=== PATIENT | female | born 1940 | race Caucasian/White ===

== ENCOUNTER 2016-08-07 11:50 | Inpatient (IN) | payer OTHER ==
--- NOTE | ~2016-08-07 | A ---
[facility] Nutrition Therapy DATE: 08/08/16 Patient: ANDRE DAVIDSON Physician: ERMA Address: [address] [place] [address] MAL[place] Room/Bed: [address] [place] [address], Zip: [place] [address] Admit Date: 08/07/16 Date of : 38 Height: 5 6 Weight: 113 51.25 NUTRITIONAL ASSESSMENT: REASON: LOW BMI PT IS 76 Y.O. FEMALE ADMITTED FOR INFLUENZA PMH: HTN, COPD, ANXIETY DISORDER, SMOKER, EMPYSEMA, HLD, HYPOTHYROIDISM Anthropometrics: 5'6", WT: 112# (51 KG), BMI: 18.1, 86%IBW Labs: WNL Meds: SOLU-MEDROL, NACL, ZOFRAN I/O & Bowel function: 240/480 Skin Integrity: NO KNOWN SKIN ISSUES Estimated Nutrition Needs: INCREASED NUTRIENT NEEDS 2' PT UNDERWEIGHT, WEIGHT LOSS NOTED, CURRENT CONDITION Assessment: CHART REVIEWED AND EVENTS NOTED. PT SEEN FOR LOW BMI. PT ANXIOUS AT TIME OF VISIT REPORTING DECREASED PO INTAKE 2' DECREASED APPETITE PAST FEW DAYS 2' "NOT FEELING WELL". PT REPORTS UBW IS ~135#, OVER [address] ENCOURAGED ADEQUATE KCAL AND PROTEIN INTAKE, PT AGREED TO MAGIC CUP BID, RD WILL ORDER. PT REPORTED NO DIET QUESTIONS AT THIS TIME. RD TO FOLLOW. SEE RECOMMENDATIONS BELOW. Dx: INADEQUATE PROTEIN-ENERGY INTAKE R/T DECREASED APPETITE, CURRENT CONDITION AEB PT REPORT ABOVE, LOW BMI OF 18.1, 86%IBW. Intervention: 1. REGULAR DIET 2. MAGIC CUP BID Monitoring, Evaluation and Goals: 1. PO INTAKE; PROVIDE AND CONSUME ADEQUATE NUTRITION W/NO C/O N/V/D (PO>50%) 2. WEIGHTS; PROMOTE GRADUAL WEIGHT GAIN; PREVENT FURTHER WEIGHT LOSS MONITOR: -PO INTAKE/APPETITE -SUPPLEMENT INTAKE -WEIGHTS Recommendations: [facility] Nutrition Therapy DATE: 08/08/16 Patient: ANDRE DAVIDSON Physician: ERMA Address: [address] [place] [address] Room/Bed: [address] [place] [address], Zip: [place] [address] Admit Date: 08/07/16 Date of : 38 Height: 5 6 Weight: 113 51.25 1. ORDER LELO MAGIC CUP BID W/MEALS 2. PLEASE WEIGH PT q 3 DAYS FOR MONITORING PURPOSES 3. APPRECIATE FAMILY AND STAFF TO ENCOURAGE ADEQUATE KCAL AND PROTEIN INTAKE RD WILL F/U PER PROTOCOL PT IS MILD/MODERATELY COMPROMISED Respectfully, MINNA LIN MS, RD, LD [facility] cc: client file
--- NOTE | ~2016-08-07 | DS ---
Unit #: [id number] #: [id number] Patient: ANDRE DAVIDSON [id number] [address] [address] [id number] I MR#: [id number] NAME: ANDRE DAVIDSON ROOM: 232 Age: 76 Sex: F Admission Date: 08/07/2016 : 1940 Discharge Date: Attending Physician: Boy Darby M.D. Primary Care Physician: Segundo Leblanc M.D. DISCHARGE SUMMARY DISCHARGE/TRANSFER SUMMARY DATE OF TENTATIVE TRANSFER August 09, 2016 Please note, patient is being transferred to inpatient [facility]. PRINCIPAL DISCHARGE DIAGNOSES 1. Acute influenza A. 2. Acute on chronic respiratory failure. 3. Hypoxemia. 4. Chronic obstructive pulmonary disease. 5. Hypertension. 6. Tobacco use. 7. Generalized anxiety disorder. 8. History of hypothyroidism. PROCEDURES None. CONSULTANTS None. REASON FOR HOSPITALIZATION The patient is a 76-year-old white female with a history of hypertension, COPD, generalized anxiety disorder, and ongoing tobacco use, who presented to the emergency room with three days of cough, shortness of air, myalgias, weakness, and headache, found to have acute influenza A and hypoxemia, and admitted for same. On admission, she had a temperature of 99.5, pulse of 115, blood pressure 134/71, and O2 saturation was 94% on two liters but 85% on room air. HOSPITAL COURSE The patient was admitted. She was started on IV Solu-Medrol, p.o. Tamiflu, p.o. Singulair, and DuoNebs. Home medications were resumed otherwise. She was started on Lovenox for DVT prophylaxis. She had minimal improvement while here. EKG on admission showed sinus tachycardia, right axis deviation, and nonspecific ST-T abnormality inferior leads. No old EKGs for comparison. ABGs on two liters showed a pH of 7.368, PCO2 of 38.5, and PAO2 of 93.9. Lactic acid was 0.8. Chest x-ray showed emphysema but no active disease. Blood cultures no growth to date. When I came in this morning, I told the patient she could probably be home Unit #: [id number] #: [id number] Patient: ANDRE DAVIDSON in the next 24-48 hours. She was upset and stated that she did not want to go home, she wanted to go to [facility] for terminal care. [facility] was consulted, and they have accepted the patient pending bed availability. Apparently, the patient was a Do Not Resuscitate at home, and we were unaware of this. It has been written. She is to be transferred to inpatient hospice when a bed is available. She is on comfort measures only with current medications being morphine 1-2 mg IV q.2 hours p.r.n. for pain or shortness of air, Ativan 0.5-1 mg IV q.4 hours p.r.n. for anxiety, and Robinul 0.2 mg IV q.4 hours p.r.n. for excessive secretions. DISPOSITION She will be transferred to [facility] inpatient when a bed is available for terminal care. Dictated by... Zoran Bahena/david TD: 08/09/2016 18:39 JOB #: [id number] DISCHARGE SUMMARY Page 1 of 1 X Boy Darby MD X DISCHARGE SUMMARY
--- NOTE | ~2016-08-07 | EKG ---
PATIENT: ANDRE DAVIDSON UNIT #: [id number] Ventricular Rate: 117 BPM Atrial Rate: 117 BPM P-R Interval: 126 ms QRS Duration: 82 ms Q-T Interval: 306 ms QTC Calculation(Bezet): 426 ms P Sagola: 87 degrees Calculated R Sagola: 102 degrees Calculated T Sagola: -23 degrees Diagnosis Line: Sinus tachycardia Diagnosis Line: Rightward axis Diagnosis Line: ST and T wave abnormality, consider inferior Diagnosis Line: ischemia Diagnosis Line: Abnormal ECG Diagnosis Line: No previous ECGs available Diagnosis Line: Confirmed by AYLIN PARRA MD ([id number]) on Diagnosis Line: 08/07/2016 2:28:44 PM INTERPRETING MD: FIDEL TRAMMELL
--- NOTE | ~2016-08-07 | HP ---
Unit #: [id number] #: [id number] Patient: ANDRE DAVIDSON [id number] [address] [address] [id number] I MR#: [id number] NAME: ANDRE DAVIDSON ROOM: 16166 Age: 76 Sex: F Admission Date: 08/07/2016 : 1940 Attending Physician: Boy Darby M.D. Primary Care Physician: Segundo Leblanc M.D. HISTORY AND PHYSICAL HISTORY OF PRESENT ILLNESS A 76-year-old white female with a history of hypertension, COPD, generalized anxiety disorder, and ongoing tobacco use, presented to the emergency room with three days of cough, shortness of air, myalgias, weakness, and headache, and found to have acute influenza A and hypoxemia and admitted for treatment for same. Patient has no other complaints on review of systems. PAST MEDICAL HISTORY 1. Chronic obstructive pulmonary disease. 2. Emphysema. 3. Generalized anxiety disorder. 4. History of hypothyroidism. 5. Hyperlipidemia. 6. Tobacco use. PAST SURGICAL HISTORY 1. Hernia repair. 2. Ovarian tumor. 3. Breast tumor. 4. Fallopian tube tumor. ALLERGIES No known drug intolerances. MEDICATIONS PRIOR TO ADMISSION 1. Combivent Respimat 1 puff 4 times daily. 2. Xanax 0.25 mg daily. 3. Norvasc 10 mg daily. 4. Aspirin 81 mg daily. 5. Albuterol and Atrovent unit dose mini-nebs 4 times daily. 6. Daliresp 500 mcg daily. 7. Zestril 40 mg daily. 8. Symbicort 160/4.5 at 2 puffs q.12. SOCIAL HISTORY . Smokes 1.5 packs of cigarettes daily. No alcohol or street drug use. FAMILY HISTORY Noncontributory. PHYSICAL EXAMINATION GENERAL: She is awake, alert, and oriented x3. Dyspneic at rest but in Unit #: [id number] #: [id number] Patient: ANDRE DAVIDSON no acute distress otherwise. VITAL SIGNS: Temperature 99.5, pulse 115, respirations 23, blood pressure 134/71, and O2 saturation 94% on two liters. On room air, it was 85%. HEENT: Unremarkable except for nasal cannula in place. NECK: Supple without JVD, bruits, adenopathy, or thyromegaly. CHEST: Diffusely decreased breath sounds but clear to auscultation. HEART: Regular rate and rhythm without any S3 gallop or murmur appreciated. ABDOMEN: Soft, nondistended, and nontender, with positive bowel sounds and no hepatosplenomegaly. EXTREMITIES: No clubbing, cyanosis, or edema. GENITOURINARY/RECTAL: Deferred. NEUROLOGIC: Grossly intact. DIAGNOSTIC STUDIES LABORATORY: CBC normal. Cardiac enzymes normal. Lactic acid normal x2. CMP normal. Influenza A positive, influenza B negative. On 2 liters, her pH was 7.36, PCO2 was 38.5, and PAO2 was 93.7. IMAGING: Chest x-ray shows severe emphysema and no active disease. CARDIOLOGY: EKG sinus tachycardia and inferior ST-T abnormality. No old EKGs for comparison. IMPRESSION 1. Acute influenza A. 2. Acute on chronic respiratory failure with hypoxemia. 3. Chronic obstructive pulmonary disease. 4. Hypertension. 5. Generalized anxiety disorder. PLAN IV Solu-Medrol, p.o. Tamiflu, Singulair, DuoNebs, and resume home medications. Supplemental oxygen to keep her saturations above 90%. Further evaluation pending results of the above. Dictated by Zoran Bahena/david TD: 08/07/2016 17:51 JOB #: [id number] HISTORY AND PHYSICAL Page 1 of 1 X Boy Darby MD X HISTORY AND PHYSICAL
--- NOTE | ~2016-08-07 | CR72 ---
[facility] A Service of [facility] RADIOLOGY TEXT RESULTS PATIENT: ANDRE DAVIDSON LOCATION: [facility] 232-01 : 38 UNIT #: [id number] AGE: [address]: Boy Darby MD SEX: F ORDER DR: [id number] [facility] [address] [place], [place] [address] [id number] MR#: [id number] Acc #: [id number] NAME: ANDRE DAVIDSON : 1940 SEX: F STUDY DATE/TIME: 08/07/2016 10:57 UNIT: [facility] ROOM: STUDY DESCRIPTION: CR Chest Single View Portable Attending Physician: Segundo Gunderson M.D. Ordering Physician: Segundo Gunderson M.D. Primary Care Physician: Segundo Leblanc M.D. MEDICAL IMAGING REPORT This report is preliminary unless electronic signature is present EXAM Portable chest 08/07/2016. INDICATIONS Shortness of air for 2 days. History of hypertension and COPD. TECHNIQUE FINDINGS AP portable chest was obtained. COMPARISON No comparison. FINDINGS Cardiac and mediastinal contours are normal. There is some atherosclerotic disease in the aorta. There is severe pulmonary emphysema. No pneumothorax. No definite acute infiltrates. IMPRESSION Severe emphysema. No active disease. Please note that there are no comparisons. Dictated by... Segundo Yun Jr., M.D. THIS IS AN ELECTRONICALLY VERIFIED REPORT Segundo Yun Jr., M.D. at 08/07/2016 6:58 PM RLK/karie TD: 08/07/2016 15:51 JOB #: [id number] MEDICAL IMAGING REPORT Page 1 of 1 COPY
[2016-08-07 11:39] LABS: BASOPHIL% 0.4 % (0-2.5); HEMATOCRIT 44.4 % (35.0-45.0); HEMOGLOBIN 14.6 gm/dL (12.0-16.0); LYMPHOCYTE# 0.2 X10e3 (1.0-3.5); MEAN CELL VOLUME 86.8 FL (83-96); MEAN CORPUSCULAR HEMOGLOBIN 28.4 PG (28-34); MEAN CORPUSCULAR HGB CONC 32.8 g/dL (30-36); MEAN PLATELET VOLUME 7.4 FL (6.5-11.5); MONOCYTE# 0.3 X10e3 (0-1.0); MONOCYTE% 4.3 % (3.0-12.0); NEUTROPHIL# 7.3 X10e3 (1.5-7.1); NEUTROPHIL% 93.3 % (40-75); PLATELET COUNT 193 X10e3 (140-420); RED BLOOD COUNT 5.12 X10e (3.90-5.30); RED CELL DISTRIBUTION WIDTH 14.4 % (11.0-15.5); WHITE BLOOD COUNT 7.9 X10e3 (4.0-10.5)
[2016-08-07 11:49] LABS: DIFF IND NO
[~2016-08-07 11:50] MED LIST: ALPRAZOLAM PO; ASPIRIN81 MG PO; COMBIVENT U/D3 M2 INH; DALIRESP500 MCG PO; IPRAT-ALBUT 0.5-3 ML INH; LISINOPRIL PO; NORVASC PO; SYMBICORT INH
[2016-08-07 11:55] LABS: POC - TROPONIN <0.05 ng/mL (<=0.05)
[2016-08-07 12:07] LABS: ALBUMIN SERUM 4.2 g/dL (3.5-5.0); ALKALINE PHOSPHATASE 83 U/L (32-92); ALT (SGPT) 17 U/L (10-40); AST (SGOT) 27 U/L (10-42); BILIRUBIN, DIRECT 0.2 mg/dL (0.0-0.2); BILIRUBIN,INDIRECT 0.8 mg/dL (0.0-0.9); BLOOD UREA NITROGEN 16 mg/dL (9-23); CALCIUM SERUM 8.7 mg/dL (8.4-10.2); CARBON DIOXIDE 24 mmol/L (22-31); CHLORIDE 98 mmol/L (100-111); CREATININE SERUM 0.8 mg/dL (0.6-1.4); GLOM FILT RATE Estimated ABOVE60 mL/min (>60); GLUCOSE FASTING 98 mg/dL (70-110); POTASSIUM 3.5 mmol/L (3.5-5.1); PROTEIN TOTAL SERUM 7.4 g/dL (6.0-8.3); SODIUM 135 mmol/L (135-145)
[2016-08-07 12:08] LABS: INFLUENZA A POS (NEG); INFLUENZA B NEG (NEG)
[2016-08-07 15:22] LABS: ARTERIAL BLOOD GAS CARBOXY HB 0.5 %sat (0.0-9.0); ARTERIAL BLOOD GAS HCO3 22.1 mmol/L; ARTERIAL BLOOD GAS MET HB 0.6 %sat (0.0-2.0); ARTERIAL BLOOD GAS PCO2 38.5 mmHg (35.0-45.0); ARTERIAL BLOOD GAS PO2 93.9 mmHg (80.0-100); ARTERIAL BLOOD GAS pH 7.368 (7.350-7.450)
[2016-08-07 15:23] LABS: ARTERIAL BLOOD GAS ALLEN TEST NORMAL; ARTERIAL BLOOD GAS ART SITE RIGHT RADIAL; ARTERIAL BLOOD GAS DELIVERY NASAL CANNULA; ARTERIAL DRAW? YES
== END 2016-08-10 11:50 | DRG 193 ==
LOC: CED 11:50 → CEDOF 14:40 → C2A 17:53
PROVIDERS: Emergency Medicine; Internal Medicine
DX: J10.1 Influenza due to other identified influenza virus with other respiratory manifestations (principal); J96.21 Acute and chronic respiratory failure with hypoxia; J44.1 Chronic obstructive pulmonary disease with (acute) exacerbation; I10 Essential (primary) hypertension; F17.210 Nicotine dependence, cigarettes, uncomplicated; F41.1 Generalized anxiety disorder; E03.9 Hypothyroidism, unspecified; E78.5 Hyperlipidemia, unspecified; Z66 Do not resuscitate
CPT/HCPCS: 36415; 36600; 71010; 80048; 80076; 82553; 82803; 83605; 84484; 85025; 87040; 87804; 93005; 94640; 94760; 96360; 99284; J1650; J2060; J2930